=== PATIENT | female | born 1960 | race African-American/Black ===

== ENCOUNTER 2024-04-18 04:34 | Day surgery (SDC) | payer OTHER ==
[2024-03-30 14:27] VITALS: BMI 23.0
[2024-04-18 10:56] VITALS: RESP 18; TEMP 98.7
[2024-04-18 12:04] VITALS: BP 120/65; PULSE 85
== END 2024-04-18 11:30 | disposition home or self-care (01) ==
LOC: JASU-ENDO 04:34
PROVIDERS: ATTEND Internal Medicine Gastroenterology
PROC: 0DBL8ZX Excision of Transverse Colon, Via Natural or Artificial Opening Endoscopic, Diagnostic (ICD-10-PCS; principal; 2024-04-18 09:30)
DX: Z12.11 Encounter for screening for malignant neoplasm of colon (principal); D12.3 Benign neoplasm of transverse colon; K64.8 Other hemorrhoids; Z86.0100 Personal history of colon polyps, unspecified
CPT/HCPCS: 88305-TC